=== PATIENT | female | born 1985 | race Caucasian/White ===

== ENCOUNTER 2021-02-05 18:22 | Emergency (ER) | payer OTHER, SELFPAY ==
[2021-02-05 19:00] VITALS: BP 143/97; PULSE 118; RESP 14; TEMP 36.4; O2SAT 100
--- NOTE | 2021-02-05 19:30 | ED.GENADULT ---
HPI - General Adult General Chief complaint: Urogenital-Female Stated complaint: std Time Seen by Provider: 02/05/21 19:31 Source: patient and RN notes reviewed Mode of arrival: ambulatory Limitations: no limitations History of Present Illness HPI narrative: 35-year-old female presents with vaginal irritation and discharge for the past 30 days. Althea reports ex-fianc? cheated on her, she been having green vaginal discharge and irritation which has increased over the last 48 hours. Douching without relief. No significant pelvic pain. No dysuria. Denies fever or chills. Althea concern for STDs. No new partners. Sexually active, unprotected intercourse. Denies multiple partners. No exacerbating factors. Denies hematuria or vaginal bleeding. Denies being , LMP 01/10/2021. No flank pain. Denies nausea, vomiting, and abdominal pain.? Tolerating liquids well.? Remains active. The patient reports she have not been diagnosed with COVID-19. The patient reports she is not waiting for the results of a COVID-19 lab test. The patient reports she do not have weakness or fatigue. The patient reports she do not have a new or worsening cough or shortness of breath. Denies chest pain. The patient reports she do not have any rhinorrhea, congestion, sore throat, loss of taste or smell, and diarrhea. Denies recent traveling. Denies concerns for COVID-19 or exposures been home with limited outdoor exposure except for essential household needs, work, and return home. At this time, patient is not suspected of having COVID-19. Some parts of this dictation were generated by voice recognition software and may contain typographical and/or grammatical inaccuracies. Related Data Allergies Allergy/AdvReac Type Severity Reaction Status Date / Time No Known Allergies Allergy Verified 02/05/21 18:36 Review of Systems Review of Systems: Narrative: CONSTITUTIONAL: Denies fever, chills, sweats. EYES: Denies visual changes, redness, discharge. ENT: Denies rhinorrhea, congestion, sore throat, otalgia. CARDIOVASCULAR: Denies chest pain, palpitations, edema. RESPIRATORY: Denies dyspnea, wheezing, cough. GASTROINTESTINAL: Denies abdominal pain, nausea, vomiting, diarrhea. GENITOURINARY: Complains of vaginal irritation, abnormal discharge. Denies dysuria (burning, frequent, urgency), hematuria. SKIN: Denies rash or itching. MUSCULOSKELETAL: Denies acute back pain, joint pain, or myalgia. NEUROLOGIC: Denies numbness or focal weakness. PSYCHIATRIC: Denies anxiety or depression. All systems reviewed & are unremarkable except as noted in HPI and below. [facility] Past Medical History Medical History (Updated 02/06/21 @ 00:00 by Shelli Roth) Diabetes Obese Surgical History Surgical History (Updated 02/05/21 @ 20:00 by SARAH Jin) History of tonsillectomy Family History Family History (Updated 02/05/21 @ 20:00 by SARAH Jin) Father Alive and well Mother Alive and well Social History Social History (Updated 02/06/21 @ 03:08 by SARAH Jin) Smoking packs per day: 1 Smoking cigarettes per day: 20.0 Years smoked: 10 Smoking pack-years: 10.00 Smoking status: Current every day smoker Tobacco type: cigarettes Second hand tobacco smoke exposure: No Alcohol intake: former Substance use: never Substance use type: does not use Living arrangements: with family Occupation/Education: unemployed Gender identity (if verbalized by the patient): Female Sexual Orientation (if Verbalized by the Patient): Straight or Heterosexual Comments At time of signature, agree with nurse past medical, surgical, social, and family history.? There is no relevant patient or family history pertinent to the presenting complaint. Exam Narrative: Exam Narrative: GENERAL: This is a well-nourished, well-developed patient, in no apparent distress.? Talks in full sentences and ambulates with st
[2021-02-05] MEDS: cefTRIAXone 250 MG VIAL 500 MG IM (20:00)
[2021-02-05] MEDS: LIDOCAINE HCL 1% LOCAL INJ 20 ML VIAL INFILTRATE (20:01)
[2021-02-05] MEDS: AZITHROMYCIN 250 MG TABLET 1000 MG PO (20:07)
[2021-02-05 20:30] VITALS: BP 140/90; PULSE 98
== END 2021-02-05 20:30 | disposition home or self-care (01) ==
PROVIDERS: Emergency Provider Nurse Practitioner Family
DX: N76.0 Acute vaginitis (principal); Z11.3 Encounter for screening for infections with a predominantly sexual mode of transmission; F17.210 Nicotine dependence, cigarettes, uncomplicated; E11.9 Type 2 diabetes mellitus without complications
CPT/HCPCS: 81003; 87086; 87491; 87591; 87661; 96372; 99214; A9270; G0463; J0696

== ENCOUNTER 2022-01-20 06:18 | Emergency (ER) | payer OTHER, SELFPAY ==
[2022-01-20] VITALS (21 sets, daily range): BP systolic 119–216; BP diastolic 83–165; PULSE 102–158; RESP 14–23; TEMP 35.5–37.2; O2SAT 98–100
--- NOTE | ~2022-01-20 | CT_ITS ---
EXAMINATION: CTA brain carotid EXAM DATE: 01/20/2022 08:33 INDICATION: AMS/eye deviation . TECHNIQUE: Spiral CTA of the carotid arteries was performed with intravenous injection 100 cc of Om nipaque 350. Axial, coronal, sagittal reformatted images reviewed. Additional reformatted images cre ated on dedicated 3-D workstation. NASCET comparable standard used to assess the degree of arterial stenosis. Spiral CT angiogram cerebral arteries performed with the same intravenous injection of con trast. Source images of the brain CTA transferred to dedicated workstation for 3-D rotational image c reation. Coronal, sagittal maximum intensity pixel images also reviewed. The dose-length product (D LP) for this examination was 1164.90 mGy-cm. The exposure was tailored according to patient size, a nd iterative reconstruction (ASIR) was used as additional dose reduction technique. Correlation is ma de to noncontrast head CT earlier same date. FINDINGS: Codominant vertebral arteries. There is bilateral carotid bulb 0% stenosis. There is no ca rotid or vertebral basilar arterial dissection or fibromuscular dysplasia. There are no cerebral gray ry aneurysms. There is symmetric cerebral artery arborization. The sagittal, transverse and sigmoid s inuses enhance normally, no venous sinus thrombosis. Internal cerebral veins also enhance normally. There are no areas of abnormal enhancement on the post contrast images. Incidental Findings: Intubated. Nasogastric tube with one coil in the mouth. Right periorbital swelli ng. Patchy right-sided airspace disease most likely pneumonia. At least small to moderate right pleur al effusion. Mild compression fracture of T4 at the superior endplate, sclerosis suggests healing res ponse, could be subacute age. No cervical fracture. IMPRESSION: 1. No acute carotid or intracranial findings. 2. Nasogastric tube with one coil, redundancy in the mouth. ET tube in position. 3. Patchy right-sided pneumonia. 4. Small to moderate right pleural effusion. 5. Subacute appearing T4 mild compression fracture. 6. Right periorbital swelling. Reviewed, dictated and finalized at location A. S MGR IMPRESSION: 1. No acute carotid or intracranial findings. 2. Nasogastric tube with one coil, redundancy in the mouth. ET tube in positio n. 3. Patchy right-sided pneumonia. 4. Small to moderate right pleural effusion. 5. Subacute appearing T4 mild compression fracture. 6. Right periorbital swelling.
--- NOTE | ~2022-01-20 | CT_ITS ---
EXAMINATION: CT chest abdomen pelvis wo con DATE: 01/20/2022 08:34 INDICATION: Chest and abdominal injury. TECHNIQUE: Computed tomography (CT) of the chest, abdomen, and pelvis was performed with 100 mL Omnip aque 350 intravenous contrast. Automated exposure control and iterative reconstruction technique were employed. The dose-length product was 1164.90 mGy-cm. COMPARISON: None FINDINGS: CHEST CT: There are patchy airspace and groundglass opacities in right lung upper lobe. There is dependent atel ectasis in posterior segment right upper lobe. There are centrilobular nodules in right middle lobe a nd right lower lobe. These findings are consistent with pneumonia. There is a small right pleural eff usion. There is near complete collapse of left lower lobe with mucous plugging in the left lower lobe bronchus. There is minimal atelectasis in left upper lobe. The endotracheal tube tip is 3.2 cm above the daphney. The nasogastric tube tip is in the stomach with proximal side port in the distal esophag us. The heart size is normal. No pericardial effusion. There are old healed bilateral rib fractures. There is a compression fracture of T4 with 1/5 loss of height. There are compression fractures of T11 and T12 with 1/5 and 2/5 loss of height, respectively. ABDOMEN/PELVIS CT: The liver and spleen are normal. The gallbladder is distended. There are calcifications in the pancre as, consistent with chronic pancreatitis. The adrenal glands and kidneys are normal. There is a subcu taneous hematoma in left lower quadrant. Stool distends the rectum. There is a large volume of stool in the colon. There is distention of the splenic flexure of the colon. The appendix is not visualized . There are no pathologically enlarged lymph nodes. The left periuterine and ovarian veins are enlarg ed, consistent with pelvic venous insufficiency. There is no free intraperitoneal fluid. There is mil d lumbar spondylosis. IMPRESSION: 1. Pneumonia in right lung. 2. Small right pleural effusion. 3. Near-complete collapse of left lung lower lobe with mucous plugging in the bronchus. 4. Nasogastric tube tip in the stomach with proximal side port in the distal esophagus. Advancement 6 cm is recommended. 5. Age-indeterminate compression fractures of T4, T11, and T12. 6. Large volume of stool in the colon with distention of the splenic flexure and rectum. 7. Gallbladder distention, which may be secondary to fasting. 8. Subcutaneous hematoma in left lower quadrant. Reviewed, dictated and finalized at location A. D HELPER IMPRESSION: 1. Pneumonia in right lung. 2. Small right pleural effusion. 3. Near-complete collapse of left lung lower lobe with mucous plugging in the b ronchus. 4. Nasogastric tube tip in the stomach with proximal side port in the distal es ophagus. Advancement 6 cm is recommended. 5. Age-indeterminate compression fractures of T4, T11, and T12. 6. Large volume of stool in the colon with distention of the splenic flexure an d rectum. 7. Gallbladder distention, which may be secondary to fasting. 8. Subcutaneous hematoma in left lower quadrant.
--- NOTE | ~2022-01-20 | CT_ITS ---
EXAMINATION: CT facial & cervical spine wo DATE: 01/20/2022 07:25 INDICATION: Head injury. TECHNIQUE: Computed tomography (CT) of the maxillofacial region and cervical spine was performed with out intravenous contrast. Automated exposure control and iterative reconstruction technique were empl oyed. The dose-length product was 419.33 mGy-cm. COMPARISON: None FINDINGS: MAXILLOFACIAL CT: Motion artifact is noted. There is mild mucosal thickening in the paranasal sinuses. Bone alignment i s normal. No fracture. CERVICAL SPINE CT: There is a small right pleural effusion. The visualized portions of the lungs demonstrate patchy airs pace and groundglass opacities in right upper lobe and nodules in right lower lobe, consistent with p neumonia. The endotracheal tube tip is 3.3 cm above the daphney. A nasogastric tube is partially visua lized. There is 9 degrees levocurvature of cervical spine. There is a compression fracture of T4 with 1/5 loss of height. There is mildly decreased disc height at C5-C6 and C6-C7. The following disc lev els are specifically discussed: C2-C3: There is no uncovertebral joint osteoarthritis. There is mild right facet joint osteoarthritis . There is no neural foraminal stenosis. There is no central canal stenosis. C3-C4: There is mild right uncovertebral joint osteoarthritis. There is mild right facet joint osteoa rthritis. There is no neural foraminal stenosis. There is no central canal stenosis. C4-C5: There is mild bilateral uncovertebral joint osteoarthritis. There is no facet joint osteoarthr itis. There is no neural foraminal stenosis. There is no central canal stenosis. C5-C6: There is mild bilateral uncovertebral joint osteoarthritis. There is mild right facet joint os teoarthritis. There is no neural foraminal stenosis. There is no central canal stenosis. C6-C7: There is no uncovertebral joint osteoarthritis. There is mild bilateral facet joint osteoarthr itis. There is no neural foraminal stenosis. There is no central canal stenosis. C7-T1: There is no uncovertebral joint osteoarthritis. There is mild bilateral facet joint osteoarthr itis. There is no neural foraminal stenosis. There is no central canal stenosis. IMPRESSION: 1. Sensitivity for fractures moderately decreased by motion artifact. 2. Age-indeterminate T4 compression fracture. 3. Airspace and groundglass opacities in right lung upper lobe and nodules in superior segment right lower lobe, likely pneumonia. 4. Small right pleural effusion. Reviewed, dictated and finalized at location A. HEAD LINE WORKER IMPRESSION: 1. Sensitivity for fractures moderately decreased by motion artifact. 2. Age-indeterminate T4 compression fracture. 3. Airspace and groundglass opacities in right lung upper lobe and nodules in s uperior segment right lower lobe, likely pneumonia. 4. Small right pleural effusion.
--- NOTE | ~2022-01-20 | XR_ITS ---
EXAMINATION: XR chest ET placement DATE: 01/20/2022 06:51 INDICATION: Intubation. TECHNIQUE: A single frontal view of the chest was obtained on 2 radiographs. COMPARISON: None. FINDINGS: There are airspace opacities in right perihilar region. A bandlike opacity in right midlung zone may be atelectasis or fluid in the minor fissure. No pneumothorax. The heart size is normal. Th e nasogastric tube tip is in the stomach with proximal side port in the distal esophagus. The endotra cheal tube tip is 6.6 cm above the daphney. IMPRESSION: 1. Airspace opacities in right perihilar region, consistent with pneumonia versus asymmetric pulmonar y edema. 2. Bandlike opacity in right midlung zone, which may be atelectasis or fluid in the minor fissure. 3. Nasogastric tube tip in the stomach with proximal side port in the distal esophagus. Advancement 6 cm is recommended. Reviewed, dictated and finalized at location A. D GEOGRAPHY TEACHER IMPRESSION: 1. Airspace opacities in right perihilar region, consistent with pneumonia vers us asymmetric pulmonary edema. 2. Bandlike opacity in right midlung zone, which may be atelectasis or fluid in the minor fissure. 3. Nasogastric tube tip in the stomach with proximal side port in the distal es ophagus. Advancement 6 cm is recommended.
--- NOTE | ~2022-01-20 | CT_ITS ---
EXAMINATION: CT brain wo con DATE: 01/20/2022 07:25 INDICATION: Head injury. Unresponsive. TECHNIQUE: Computed tomography (CT) of the head was performed without intravenous contrast. The mA wa s adjusted according to patient size. Iterative reconstruction technique was employed. The dose-lengt h product was 681.00 mGy-cm. COMPARISON: None FINDINGS: Motion artifact is noted. There is no intracranial hemorrhage, acute infarction, or abnorma l intracranial mass lesion. The ventricles are normal in size. The mastoid air cells are normal. The paranasal sinuses are clear. The orbits are normal. There is scalp and periorbital soft tissue swelli ng. IMPRESSION: 1. No acute intracranial pathology. Sensitivity is moderately decreased by motion artifact. Reviewed, dictated and finalized at location A. APPLICATIONS MANAGER IMPRESSION: 1. No acute intracranial pathology. Sensitivity is moderately decreased by donny on artifact.
--- NOTE | 2022-01-20 06:23 | ECG_ITS ---
Measurements Intervals [place] Rate: 125 P: 87 NC: 158 QRS: 70 QRSD: 84 T: 72 QT: 307 QTc: 444 Interpretive Statements SINUS TACHYCARDIA ABNORMAL RHYTHM ECG NO PREVIOUS ECG AVAILABLE FOR COMPARISON Electronically Signed On 01-23-2022 14:08:36 CDT by Finesse Chavez M.D.
[2022-01-20] MEDS: NALOXONE HCL INJ 2 MG/2 ML AMP (06:28)
--- NOTE | 2022-01-20 06:33 | PC.NURSE ---
marked swelling right side of face right per eyes dilated and deviated to left, bilat hand swelling mottled skin oral suction no gag reflex noted
[2022-01-20 06:34] LABS: Basophils Absolute Auto 0.1 K/mm3 (0.0-0.1); Basophils Percent Auto 0.5 % (0.2-1.2); Eosinophils Percent Auto 0.1 % (0-4.4); Hematocrit 43.6 % (37.0-47.0); Immature Granulocyte Absolute 0.08 K/mm3 (0.00-0.031); Immature Granulocyte Percent A 0.5 % (0-0.5); Lymphocytes Absolute Auto 1.87 K/mm3 (0.9-3.2); Lymphocytes Percent Auto 12.8 % (18.3-44.2); Mean Corpuscular HGB Conc 29.8 g/dl (32-36); Mean Corpuscular Hemoglobin 27.3 pg (26-34); Mean Corpuscular Volume 91.4 fl (80-100); Mean Platelet Volume 9.8 fl (7.4-10.4); Monocytes Absolute Auto 0.4 K/mm3 (0.1-0.6); Monocytes Percent Auto 2.5 % (2.6-8.5); Neutrophils Absolute Auto 12.2 K/mm3 (1.3-6.7); Neutrophils Percent Auto 83.6 % (45.5-73.1); Platelet Count Result 472 k/mm3 (150-375); Red Blood Count 4.77 M/mm3 (4.2-5.4); Red Cell Distribution Width 16.2 % (11.5-14.5); White Blood Count 14.6 K/mm3 (4.5-10.0)
--- NOTE | 2022-01-20 06:37 | PC.NURSE ---
0636 etomidate 4mg IV Succinylcholine 100mg IV for intubation. 0637 intubated 7.0 orally at 24cm at the lip
[2022-01-20] MEDS: RAPID SEQUENCE INTUBATION KIT 1 EACH (06:39)
[2022-01-20 06:43] LABS: Alanine Aminotransferase 38 U/L (4-35); Albumin Level 3.4 g/dL (3.5-5.1); Alkaline Phosphatase 289 U/L (38-126); Anion Gap 7 mmol/L (8-16); Aspartate Amino Transferase 46 U/L (14-36); Bilirubin,Total 0.3 mg/dL (0.2-1.3); Blood Urea Nitrogen 28 mg/dL (7-17); Calcium 8.5 mg/dL (8.4-10.2); Carbon Dioxide 25 mmol/L (22-30); Chloride 110 mmol/L (98-107); Creatine Kinase 115 U/L (30-135); Estimated CRCL calculation 15 ml/min; Estimated Glomerular Filt Rate > 60; Glucose 68 mg/dL (65-110); INR 0.8; Lipase 55 U/L (23-300); Magnesium 2.4 mg/dL (1.6-2.3); Potassium 4.3 mmol/L (3.4-5.0); Prothrombin Time 11.1 Seconds (11.1-14.7); Sodium 142 mmol/L (137-145)
[2022-01-20 06:44] LABS: Partial Thromboplastin Time 27.9 SECONDS (22.3-36.8)
[2022-01-20 06:45] LABS: Lactic Acid Reflex 2.6 mmol/L (0.7-2.1)
--- NOTE | 2022-01-20 06:45 | PC.NURSE ---
sayra dave applied pt cold to touch
[2022-01-20 06:46] LABS: Ethanol < 10 mg/dL (<10)
[2022-01-20 06:51] LABS: Glucose Point of Care 119 mg/dl (65-105)
--- NOTE | 2022-01-20 06:53 | ED.GENADULT ---
HPI - General Adult General Chief complaint: Altered Mental Status <Delon Poon DO - Last Filed: 01/20/22 21:04> Stated complaint: HYPOGLYCEMIA <Delon Poon DO - Last Filed: 01/20/22 21:04> Time Seen by Provider: 01/20/22 06:45 <Delon Poon DO - Last Filed: 01/20/22 21:04> Source: RN notes reviewed <Delon Poon DO - Last Filed: 01/20/22 21:04> History of Present Illness HPI narrative: Patient presents emergency department via EMS for altered mental status. History is limited as the patient is unable to give any history secondary to altered mental status per EMS patient was with friends at a house the friends called another individual stating the patient was unresponsive and that friend then came to the house and called EMS the patient's friends did give the patient her insulin thinking he might be a diabetic emergency but we do not know if the patient is awake or not awake when that was given the patient is noted to have swelling in the bilateral upper extremities as well as swelling to the right side of the face <Delon Poon DO - Last Filed: 01/20/22 21:04> Review of Systems Review of Systems: ROS unobtainable: Yes unobtainable due to mental status <Delon Poon DO - Last Filed: 01/20/22 21:04> [facility] Past Medical History Medical History: Medical History (Updated 01/20/22 @ 09:48 by Juan Zamora MD) Unknown family medical history Suspect diabetes given presence of insulin in the home <Delon Poon DO - Last Filed: 01/20/22 21:04> Surgical History Surgical History: Surgical History (Updated 01/20/22 @ 09:45 by Juan Zamora MD) Surgical history unknown <Delon Poon DO - Last Filed: 01/20/22 21:04> Comments Unable to obtain medical surgical or social history secondary to altered mental status <Delon Poon DO - Last Filed: 01/20/22 21:04> Exam Narrative: APPEARANCE: Lying in bed with agonal respirations unresponsive to verbal stimuli minimal withdraw to painful stimuli moaning EYES: Left pupil is at 8 mm right pupil is 6 mm eyes are deviated to the left HEENT: Normocephalic, swelling of the right side of the face the right eye swollen shut no ecchymosis seen, oral mucosa dry RESPIRATORY: Agonal respirations, coarse breath sounds bilateral lung yo CARDIOVASCULAR: Tachycardic and regular without murmurs rubs or gallops. ABDOMINAL: Soft, nontender, nondistended, no rebound or guarding MUSCULOSKELETAl: Moves all extremities. No clubbing, cyanosis edema the bilateral hands NEURO: Unresponsive to verbal stimuli moaning with agonal respirations minimal withdraw to painful stimuli, no gag reflex SKIN:: Warm, dry. Healing wounds of bilateral leg <Delon Poon DO - Last Filed: 01/20/22 21:04> Course Course Emergency Course: Care was turned over to Dr. Zamora at shift change awaiting results of work-up and further disposition <Delon Poon DO - Last Filed: 01/20/22 21:04> Patient stabilized. Receiving Zosyn for aspiration pneumonia. Propofol sedation is up to improve patient's vital signs and patient is no longer gagging on ET tube. There is no neurology at the hospital for the weekend. Patient could be having seizure or anoxic brain injury. Patient with continued left eye deviation. No evidence of ischemia or LVO. [facility] contacted I spoke with Dr. Lucas in the ER. He is accepted patient for transfer. Patient is having recurrent hypoglycemia and has had multiple boluses of D50 and is being started on a D10 drip after D5 drip failed. Patient be transferred by helicopter. <Juan Zamora MD - Last Filed: 01/20/22 09:49> Vital Signs Vital signs: Vital Signs Pulse Rate 158 H 01/20/22 06:21 Respiratory Rate 20 01/20/22 06:21 Blood Pressure 216/155 H 01/20/22 06:21 Temperature 99 F 01/20/22 10:00 Pulse Rate 110 H 01/20/22 10:00 Respiratory Rate 19
[2022-01-20 06:54] LABS: Troponin I < 0.012 ng/mL (0.000-0.034)
[2022-01-20 07:20] LABS: Add Urine Microscopic? YES; Appearance Urine Clear (Clear); Bilirubin Urine Negative (Negative); Blood Urine Negative (Negative); Budding Yeast Urine Present /hpf; Color Urine Yellow (Yellow); Glucose Urine UA 3+ mg/dL (Negative); Ketones Urine Negative (Negative); Leukocyte Esterase Ur Negative LEU/UL (Negative); Mucus Urine Rare /lpf; Nitrate Urine Negative (Negative); Protein Urine 3+ mg/dL (Negative); RBC Urine 0-2 /hpf (0-2); Specific Grav Ur 1.018 (1.001-1.035); Squamous Epithelial Cell Urine Rare /hpf (Few); Urobilinogen Urine Negative mg/dL (<2.0)
--- NOTE | 2022-01-20 07:27 | PC.NURSE ---
Assumed care of pt. at this time. Report from SANTO Neal
[2022-01-20 07:31] LABS: Glucose Point of Care 81 mg/dl (65-105)
[2022-01-20 07:35] LABS: Amphetamine Screen Urine Positive (Negative); Barbiturate Screen Urine Negative (Negative); Benzodiazepines Screen Urine Negative (Negative); Cannabinoid Screen Urine Positive (Negative); Cocaine Screen Urine Negative (Negative); Methadone Screen Urine Negative (Negative); Opiate Screen Urine Negative (Negative); Phencyclidine Screen Urine Negative (Negative)
[2022-01-20] MEDS: PROPOFOL IV EMULSION 100 ML 1.95 MG IV CONT (07:40)
[2022-01-20] MEDS: PROPOFOL IV EMULSION 200 MG/20 ML VIAL 50 MG IV PUSH (07:41)
[2022-01-20 07:49] LABS: Glucose Point of Care 73 mg/dl (65-105)
[2022-01-20 07:51] LABS: Alveolar/Arterial O2 Gradient 494.9 mmHg; Fractional Inspired Oxygen 100 %; HCO3 ABG 21.8 mEq/l (22.0-26.0); Oxygen Content ABG 16.2 %vol (16.0-22.0); Oxygen Saturation ABG 99.2 % (95.0-100.0); Oxyhemoglobin 94.8 % THb (90.0-100.0); PCO2 ABG 37.8 mmHg (35.0-45.0); PO2 ABG 180.3 mmHg (80.0-100.0); Total Hemoglobin 11.9 g/dL (12.0-18.0); pH ABG 7.378 (7.350-7.450)
[2022-01-20 07:52] LABS: Device VENTILATOR; Modified Allen's Test Pass; Site Drawn RIGHT RADIAL
[2022-01-20 07:53] LABS: Arterial Blood Gas PEEP 5 cmH2O; Arterial Blood Gas Tidal Volume 460 ml; Arterial Blood Gas Vent Mode CMV; Arterial Blood Gas Ventilator rate 18 /MIN
--- NOTE | 2022-01-20 08:40 | PC.NURSE ---
0840 Per erp Pt. ET tube advanced 3, measuring 26 at the lip. and NG tube advanced 6 measuring at 65 L nare.
--- NOTE | 2022-01-20 08:40 | PC.NURSE ---
pt. placed on amelie hugger due to pt. hypothermia. pt. adequate temperature at 0840. pt. removed from amelie hugger.
[2022-01-20] MEDS: DEXTROSE 50% 25 GM/50 ML SYRINGE ×2 (08:49→09:25)
[2022-01-20] MEDS: DEXTROSE 5%/0.9% SOD CHL 1,000 ML 100 ML (08:51)
[2022-01-20 08:54] LABS: Glucose Point of Care < 20 mg/dl (65-105)
[2022-01-20 08:54] LABS: Glucose Point of Care < 20 mg/dl (65-105)
[2022-01-20 09:19] LABS: Glucose Point of Care 55 mg/dl (65-105)
[2022-01-20 09:31] LABS: Reflex Lactic Acid Yes or No Add Lactic
[2022-01-20] MEDS: DEXTROSE 10% 1,000 ML 50 ML IV CONT (09:42)
[2022-01-20 09:45] LABS: Glucose Point of Care 109 mg/dl (65-105)
== END 2022-01-20 10:00 | disposition short-term general hospital (02) ==
PROVIDERS: Emergency Medicine; Emergency Provider Emergency Medicine
DX: E16.2 Hypoglycemia, unspecified (principal); S22.009A Unspecified fracture of unspecified thoracic vertebra, initial encounter for closed fracture; R41.82 Altered mental status, unspecified; J18.9 Pneumonia, unspecified organism; X58.XXXA Exposure to other specified factors, initial encounter
CPT/HCPCS: 31500; 36415; 36600; 70450; 70486; 70496; 70498; 71250; 72125; 74176; 80053; 80307; 81001; 81025; 82550; 82805; 82948; 83605; 83690; 83735; 84484; 85025; 85610; 85730; 87040; 93005; 96361; 96365; 96366; 96367; 96368; 96375; 96376; 99291; J0330; J2310; J2543; J2704; J7042; Q9967